=== PATIENT | male | born 1960 | race Caucasian/White ===

== ENCOUNTER 2017-11-08 01:52 | Emergency (ER) | payer MEDICAID, SELFPAY ==
[2017-11-08 01:53] VITALS: BP 154/104; PULSE 98; RESP 96; O2SAT 100
[2017-11-08 01:54] VITALS: BP 154/104; PULSE 101; RESP 18; TEMP 36.4; O2SAT 97; BMI 26.2
[2017-11-08 01:57] VITALS: O2SAT 97
--- NOTE | 2017-11-08 02:01 | EKG12_ITS ---
Test Reason : SOB Blood Pressure : / mmHG Vent. Rate : 091 BPM Atrial Rate : 091 BPM P-R Int : 156 ms QRS Dur : 110 ms QT Int : 370 ms P-R-T Axes : 039 011 032 degrees QTc Int : 455 ms Normal sinus rhythm Normal ECG Confirmed by JOSE ELIAS ADEN MD ([id number]), editor book CHUCK BUSTOS ([id number]) on 11/10/2017 3:07:26 PM Referred By: SULAIMAN Confirmed By:JOSE ELIAS ADEN MD
--- NOTE | 2017-11-08 02:04 | NURSING ---
NO OLD EKG'S IN MUSE
--- NOTE | 2017-11-08 02:07 | ED.VISSUMM ---
- ER Visit Summary Date of Service: 11/08/17 Chief Complaint: Complaining of shortness of breath History of Present Illness: The patient is a 57 M history of depression and hypertension. He has been off his medications because he has not gotten those filled. Said he does not currently have a physician. His actual complaint is shortness of breath however he really states he just depressed. He is not suicidal or homicidal. Is been off his antidepression medications for around 4 months. He denies any chest pain. Has a nonproductive cough. No history of DVT or PE. No risk factors. No travel no surgery. No leg pain or swelling. No hemoptysis. No fever. Physical Examination: Well-appearing middle-age male. Vital signs are stable. He is afebrile. His pulse ox is 97% on room air no signs of hypoxia. He is in no distress. He is tearful and cries but is consolable. HEENT exam unremarkable. Neck nontender no JVD. Lungs clear to auscultation bilaterally. Heart regular rhythm rate 95-100 no murmur. Chest wall nontender. Abdomen soft nontender. Normal bowel sounds. He is moving all 4 extremities. They are neurovascularly intact. Calves are nontender without edema or cords. He has normal range of motion. Back exam is nontender. Neurologically is awake and alert without focal motor deficits. Test Results: EKG shows anemia or dysrhythmia. Emergency Department Course and Treatment: Giovanni 0330 AM. Appears that most of his problem is due to depression being off his medications. I will write him for more Prozac and a prescription for his Abilify and have him follow-up with the counseling center and a local primary care physician. Treatment Plan: [] Disposition: Discharge Impression: Acute on chronic depression Medical noncompliance not taking medications due to out of his prescriptions This note was generated with [employer] dictation software. It may contain incorrect words, spelling, and punctuation that were not noted in review of the chart prior to signing ED Disposition - Plan for ED Patient: Chief Complaint: Shortness of Breath Referrals: Care Physician,No Primary [Primary Care Provider] -
--- NOTE | 2017-11-08 03:32 | ED.DEP ---
ED Disposition - Plan for ED Patient: Disposition: Home or Assisted Living Chief Complaint: Shortness of Breath Instructions: ED Depression Prescriptions: Aripiprazole [Abilify] 20 mg PO DAILY #30 tab Fluoxetine [Prozac] 60 mg PO DAILY #30 cap Referrals: Counseling,Center [GROUP OF PHYSICIANS] - As soon as possible Additional Instructions: Call and follow-up with counseling center soon as possible to get help with her depression. Call and follow-up with Dr. Garcia to get a new primary care physician locally. Get your antidepressant medications filled and start retaking them. Stop smoking !!
[2017-11-08 03:40] VITALS: BP 141/97; PULSE 90; RESP 16; O2SAT 97
--- NOTE | 2017-11-08 03:42 | ED.RN ---
THIS RN EDUCATED PT ON DISCHARGE INSTRUCTIONS AND HOME GOING PRESCRIPTIONS. PT VERBALIZES UNDERSTANDING AND DENIES ANY FURTHER QUESTIONS. I AM FEELING MUCH BETTER. PT TO FOLLOW UP WITH THE COUNSELING CENTER IN THE MORNING AND RETURN FOR ANY WORSENING SX. PT DRESSES SELF AND AMBULATES OUT OF DEPT WITH DIFFICULTY.
== END 2017-11-08 03:44 | disposition home or self-care (01) ==
PROVIDERS: Emergency Provider Emergency Medicine
DX: F32.9 Major depressive disorder, single episode, unspecified (principal); T43.226A Underdosing of selective serotonin reuptake inhibitors, initial encounter; T43.596A Underdosing of other antipsychotics and neuroleptics, initial encounter; Y92.9 Unspecified place or not applicable; J06.9 Acute upper respiratory infection, unspecified; I10 Essential (primary) hypertension; Z72.0 Tobacco use
CPT/HCPCS: 93005; 99282

== ENCOUNTER 2019-03-01 03:35 | Emergency (ER) | payer MEDICAID, SELFPAY ==
[2019-03-01 03:37] VITALS: BP 150/102; PULSE 90; RESP 16; TEMP 36.5; O2SAT 99; BMI 25.5
--- NOTE | 2019-03-01 04:07 | RAD_ITS ---
STUDY: X-RAY - RIGHT HAND REASON FOR EXAM: Male, 58 years old. Status post laceration to the right first line filling, now with erythema and pain. TECHNIQUE: 3 view(s) of the hand. COMPARISON: None. FINDINGS: Normal radiocarpal articulation. Normal distal radioulnar joint. Normal visualized carpal bones. Normal carpal articulations Normal carpometacarpal articulation of the thumb. Normal second through fifth carpometacarpal joints. Normal metacarpi. Normal metacarpophalangeal joint of the thumb. Normal interphalangeal joint of the thumb. Normal proximal and distal phalanges of the thumb. Normal metacarpophalangeal joints of the second through fifth fingers. Normal proximal and distal interphalangeal joints of the second through fifth fingers. Normal phalanges of the second through fifth fingers. There is a linear density within the radial soft tissues along side the distal phalanx of the third digit. There is mild soft tissue swelling surrounding the first metacarpophalangeal joint with no evidence of soft tissue foreign body or gas loculation RAD/Hand Min 3 Views IMPRESSION: 1. Soft tissue swelling surrounding the first metacarpophalangeal joint for body, gas loculation, or underlying bony abnormality. 2. Thin metallic soft tissue foreign body along the radial aspect of the distal phalanx of third digit Electronically Signed: Savage Solorzano MD at 4:38 EDT Tel , Service support ,
[2019-03-01 04:29] LABS: Absolute Lymphocyte Count 1.49 X10^3/ul (0.83-4.51); Absolute Neutrophil Count 4.9 X10^3/uL (2.0-7.7); Basophil# 0.01 X10^3/uL; Basophil% 0.1 % (0-1); Eosinophil# 0.29 X10^3/uL; Lymphocyte # 1.49 X10^3/ul (4.0); Lymphocyte % 20.5 % (19-41); Mean Corp Hgb Conc 33.3 g/gl (32-36); Mean Corpuscular Volume 86.9 fL (80-94); Mean Platelet Vol. 9.6 fl (6.2-12.0); Monocyte# 0.56 X10^3/uL; Monocyte% 7.7 % (0-10); Neutrophil # 4.87 X10^3/uL (2.7-7.7); Neutrophil % 67.1 % (47-70); Platelet Count 205 K/mm3 (150-450); RBC Distribution Width CV 13.2 % (11.6-14.6); RBC Distribution Width SD 41.2 fl (35.1-43.9); Red Blood Count 5.18 M/mm3 (4.6-6.2); White Blood Count 7.3 K/mm3 (4.4-11.0)
[2019-03-01 04:31] LABS: POSITIVE COUNT NO; POSITIVE DIFFERENTIAL NO; POSITIVE MORPHOLOGY NO
[2019-03-01 04:39] LABS: Anion Gap 6 (5-15); BUN 16 mg/dL (7-18); BUN/Creat Ratio 16.3 RATIO (10-20); Calcium,Total 8.6 mg/dL (8.5-10.1); Chloride 105 mmol/L (98-107); Creatinine, Serum 0.98 mg/dL (0.70-1.30); EST Glomerular Filtration Rate 83 mL/min (>60); Est Glom Filt Rate - Afr Amer 100 mL/min (>60); Estimated Creatinine Clearance 82.77 ml/min; Glucose 132 mg/dL (74-106); Potassium 4.4 mmol/L (3.5-5.1); Sodium Level 139 mmol/L (136-145)
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
[2019-03-01 05:37] VITALS: BP 151/105; PULSE 89; RESP 16; O2SAT 100
--- NOTE | 2019-03-03 08:34 | ED.RN ---
positive wound culture report called and faxed to [facility]
== END 2019-03-01 05:51 | disposition short-term general hospital (02) ==
PROVIDERS: Emergency Provider Emergency Medicine
DX: L08.9 Local infection of the skin and subcutaneous tissue, unspecified (principal); S61.011D Laceration without foreign body of right thumb without damage to nail, subsequent encounter; W26.0XXD Contact with knife, subsequent encounter; H40.9 Unspecified glaucoma; Z72.0 Tobacco use
CPT/HCPCS: 10060; 73130; 80048; 85025; 87070; 87077; 87186; 87205; 96365; 99285; J7050; A4216; J0295

== ENCOUNTER 2021-04-29 06:30 | Emergency (ER) | payer MEDICAID, SELFPAY ==
[2021-04-29 06:31] VITALS: BP 143/100; PULSE 78; RESP 18; TEMP 36.1; O2SAT 97; BMI 28.0
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
[2021-04-29] MEDS: Cephalexin 250 MG Capsule 500 MG PO (07:22)
[2021-04-29] MEDS: Diphth,Pertuss(Acell),Tet Vac 0.5 ML Vial IM (07:22)
[2021-04-29] MEDS: Lidocaine 1% (20 ml mdv) 20 ML Vial INFILT (07:23)
== END 2021-04-29 07:41 | disposition home or self-care (01) ==
PROVIDERS: Emergency Provider Emergency Medicine
DX: L02.512 Cutaneous abscess of left hand (principal); F17.210 Nicotine dependence, cigarettes, uncomplicated; I10 Essential (primary) hypertension; Z23 Encounter for immunization; Z79.899 Other long term (current) drug therapy
CPT/HCPCS: 26010; 10060; 90471; 90715; 99284